=== PATIENT | female | born 1965 | race Caucasian/White ===

== ENCOUNTER 2018-01-15 11:45 | Emergency (ER) | payer OTHER ==
[2018-01-15 12:51] LABS: ALBUMIN 3.5 g/dL (3.4-5.0); ALKALINE PHOSPHATASE 89 U/L (46-116); ALT (SGPT) 27 U/L (10-68); BILIRUBIN - TOTAL 0.52 mg/dL (0.2-1.3); CALC OSMOLALITY 275 mosm/kg (275-300); CALCIUM 8.9 mg/dL (8.5-10.1); CARBON DIOXIDE 27.5 mmol/L (21.0-32.0); CHLORIDE - SERUM 102 mmol/L (98-107); CREATININE - SERUM 0.8 mg/dL (0.6-1.3); GLUCOSE 96 mg/dL (74-106); POTASSIUM - SERUM 3.9 mmol/L (3.5-5.1); PROTEIN - SERUM 7.5 g/dL (6.4-8.2); SODIUM 137 mmol/L (136-145); UREA NITROGEN 18 mg/dL (7-18); eGFR NON AFRICAN AMERICAN 80 mL/min (90-120)
[2018-01-15 13:02] LABS: CKMB 0.7 U/L (0.0-3.6); CREATINE KINASE 64 UL (21-215)
[2018-01-15 13:04] LABS: TROPONIN-I < 0.017 ng/mL (0.000-0.060)
[2018-01-15 13:25] LABS: HEMOGLOBIN 14.3 g/dL (12-16); LYMPHOCYTES 17.8 % (15-50); MCH 31.6 pg (26.0-34.0); MCHC 34.9 g/dL (31.0-37.0); MCV 90.7 fL (80.0-100.0); MEAN PLATELET VOLUME 8.7 fL (7.4-10.4); NEUTROPHILS 77.2 % (40-80); PLATELET COUNT 331 10x3/uL (130-400); RBC 4.52 10x6/uL (4.00-5.40); RDW 11.9 % (11.5-14.5); WBC 9.2 10x3/uL (4.8-10.8)
== END 2018-01-15 18:22 | disposition home or self-care (01) ==
LOC: D.ER 11:45
PROVIDERS: Family Medicine
DX: R07.9 Chest pain, unspecified (principal); G43.909 Migraine, unspecified, not intractable, without status migrainosus